=== PATIENT | male | born 1955 | race African-American/Black ===

== ENCOUNTER 2021-03-28 14:52 | Emergency (ER) | payer MEDICARE, OTHER ==
[~2021-03-28] VITALS: Ht 182.9 cm; Wt 94.0 kg
[2021-03-28 15:37] LABS: BASOPHILS % 0.5 % (0.0-2.0); EOSINOPHILS % 0.5 % (0.0-5.0); HEMATOCRIT. 41.3 % (42.0-52.0); HEMOGLOBIN. 12.5 g/dL (14.0-18.0); LYMPHOCYTES % 41.3 % (20.0-50.0); MEAN CORPUSCULAR HEMOGLOBIN 25.1 pg (28.0-32.0); MEAN CORPUSCULAR VOLUME 82.8 fL (80.0-94.0); MEAN PLATELET VOLUME 8.8 fl (7.4-10.4); MONOCYTES % 4.1 % (2.0-8.0); NEUTROPHILS % 53.6 % (40.0-76.0); PLATELET 294 x1000/uL (130-400); RED BLOOD CELL COUNT 4.98 mill/uL (4.7-6.1); RED CELL DISTRIBUTION WIDTH 15.6 % (11.6-14.6)
[2021-03-28 15:43] LABS: CHLORIDE 112 mEq/L (98-107)
[2021-03-28 17:52] LABS: CLARITY URINE TURBID (CLEAR); COLOR URINE DARK YELLOW (YELLOW); KETONES URINE TRACE (NEGATIVE); LEUKOCYTE ESTERASE URINE NEGATIVE (NEGATIVE); NITRITE URINE NEGATIVE (NEGATIVE); OCCULT BLOOD URINE NEGATIVE (NEGATIVE); PROTEIN URINE TRACE (NEGATIVE)
[2021-03-29 02:00] VITALS: BP 145/89
[2021-03-29] MEDS ORDERED: MORPHINE SULFATE 2 MG/ML CPJ (NOT FOR IM USE) IV PRN (02:45)
== END 2021-03-29 02:50 | disposition left against medical advice (07) ==
LOC: ER 14:52 → CANBEDREQ 03-29 07:30
DX: R07.2 Precordial pain (principal); R00.1 Bradycardia, unspecified; I11.9 Hypertensive heart disease without heart failure; I25.10 Atherosclerotic heart disease of native coronary artery without angina pectoris; K44.9 Diaphragmatic hernia without obstruction or gangrene; N40.0 Benign prostatic hyperplasia without lower urinary tract symptoms; Z95.5 Presence of coronary angioplasty implant and graft; Z98.890 Other specified postprocedural states
CPT/HCPCS: 36415; 71045; 80053; 81003; 83880; 85025; 93005; 99285

== ENCOUNTER 2021-07-17 09:22 | Emergency (ER) | payer MEDICARE, OTHER ==
[~2021-07-17] VITALS: Ht 182.9 cm; Wt 130.0 kg
[2021-07-17] MEDS ORDERED: AMOX-424 MT (09:44)
[2021-07-17] MEDS ORDERED: IBUP-2029 MT (09:44)
[2021-07-17] MEDS ORDERED: AMOXICILLIN/POTASSIUM CLAVULANATE 875/125MG TAB PO ONE (09:45)
[2021-07-17] MEDS ORDERED: IBUPROFEN 800MG TABLET PO ONE (09:45)
[2021-07-17 10:07] VITALS: BP 126/67
== END 2021-07-17 10:08 | disposition home or self-care (01) ==
LOC: ER 09:22
DX: K04.7 Periapical abscess without sinus (principal); I10 Essential (primary) hypertension; Z98.890 Other specified postprocedural states
CPT/HCPCS: 99283

== ENCOUNTER 2021-10-23 09:55 | Emergency (ER) | payer MEDICARE ==
[~2021-10-23] VITALS: Ht 182.9 cm; Wt 99.8 kg
[~2021-10-23 09:55] MED LIST: AMOX-424 MT; IBUP-2029 MT
[2021-10-23 11:46] LABS: CLARITY URINE CLOUDY (CLEAR); COLOR URINE YELLOW (YELLOW); KETONES URINE TRACE (NEGATIVE); LEUKOCYTE ESTERASE URINE NEGATIVE (NEGATIVE); NITRITE URINE NEGATIVE (NEGATIVE); OCCULT BLOOD URINE NEGATIVE (NEGATIVE); PROTEIN URINE NEGATIVE (NEGATIVE); SPECIFIC GRAVITY URINE 1.028 (1.005-1.030)
[2021-10-23 12:36] LABS: BASOPHILS % 0.7 % (0.0-2.0); EOSINOPHILS % 1.4 % (0.0-5.0); HEMATOCRIT. 39.3 % (42.0-52.0); LYMPHOCYTES % 55.2 % (20.0-50.0); MEAN CORPUSCULAR HEMOGLOBIN 26.3 pg (28.0-32.0); MEAN CORPUSCULAR VOLUME 79.4 fL (80.0-94.0); MEAN PLATELET VOLUME 8.9 fl (7.4-10.4); MONOCYTES % 8.7 % (2.0-8.0); PLATELET 243 x1000/uL (130-400); RED BLOOD CELL COUNT 4.95 mill/uL (4.7-6.1); RED CELL DISTRIBUTION WIDTH 15.2 % (11.6-14.6)
[2021-10-23 12:47] LABS: CHLORIDE 108 mEq/L (98-107)
[2021-10-23 13:38] VITALS: BP 147/86
== END 2021-10-23 13:39 | disposition home or self-care (01) ==
LOC: ER 09:55
DX: R42 Dizziness and giddiness (principal); E78.00 Pure hypercholesterolemia, unspecified; I10 Essential (primary) hypertension; Z86.73 Personal history of transient ischemic attack (TIA), and cerebral infarction without residual deficits
CPT/HCPCS: 36415; 80053; 81003; 82962; 85025; 93005; 99285

== ENCOUNTER 2022-06-12 19:16 | Emergency (ER) | payer MEDICARE, MEDICAID ==
[~2022-06-12] VITALS: Ht 182.9 cm; Wt 107.0 kg
[2022-06-13] MEDS ORDERED: FAMOTIDINE 20MG/2ML VIAL IV STA (02:13)
[2022-06-13 02:43] LABS: BASOPHILS % 0.5 % (0.0-2.0); EOSINOPHILS % 1.5 % (0.0-5.0); HEMATOCRIT. 36.6 % (42.0-52.0); HEMOGLOBIN. 11.8 g/dL (14.0-18.0); LYMPHOCYTES % 60.9 % (20.0-50.0); MEAN CORPUSCULAR HEMOGLOBIN 26.1 pg (28.0-32.0); MEAN CORPUSCULAR VOLUME 81.2 fL (80.0-94.0); MEAN PLATELET VOLUME 8.7 fl (7.4-10.4); MONOCYTES % 7.6 % (2.0-8.0); NEUTROPHILS % 29.5 % (40.0-76.0); PLATELET 227 x1000/uL (130-400); RED BLOOD CELL COUNT 4.51 mill/uL (4.7-6.1); RED CELL DISTRIBUTION WIDTH 15.5 % (11.6-14.6)
[2022-06-13 02:49] LABS: CHLORIDE 112 mEq/L (98-107)
[2022-06-13 02:55] LABS: PROTHROMBIN TIME 10.9 sec (9.6-11.0)
[2022-06-13 05:45] VITALS: BP 129/68
== END 2022-06-13 07:30 | disposition home or self-care (01) ==
LOC: ER 19:16
DX: K57.30 Diverticulosis of large intestine without perforation or abscess without bleeding (principal); N20.0 Calculus of kidney; N40.1 Benign prostatic hyperplasia with lower urinary tract symptoms; R35.0 Frequency of micturition
CPT/HCPCS: 36415; 74176; 80053; 82270; 85025; 99284

== ENCOUNTER 2024-05-23 13:20 | Emergency (ER) | payer OTHER, MEDICAID ==
[~2024-05-23] VITALS: Ht 182.9 cm; Wt 109.0 kg
[2024-05-23 13:33] VITALS: O2SAT 100
[2024-05-23 14:57] LABS: CLARITY URINE CLEAR (CLEAR); COLOR URINE YELLOW (YELLOW); GLUCOSE URINE NEGATIVE (NEGATIVE); KETONES URINE NEGATIVE (NEGATIVE); LEUKOCYTE ESTERASE URINE TRACE (NEGATIVE); NITRITE URINE NEGATIVE (NEGATIVE); OCCULT BLOOD URINE NEGATIVE (NEGATIVE); PH URINE 5.5 (4.5-8.0); PROTEIN URINE NEGATIVE (NEGATIVE); SPECIFIC GRAVITY URINE 1.019 (1.005-1.030); UROBILINOGEN URINE 0.2 E.U./dL (0.2-1.0)
[2024-05-23 15:09] LABS: BACTERIA URINE FEW; RBC URINE NONE SEEN /hpf (0-2); SQUAMOUS EPITHELIAL CELL URINE 2+ /lpf (RARE/1+); YEAST URINE NONE SEEN
[2024-05-23 15:48] LABS: BASOPHILS % 0.7 % (0.0-2.0); EOSINOPHILS % 1.1 % (0.0-5.0); HEMATOCRIT. 42.2 % (42.0-52.0); HEMOGLOBIN. 13.4 g/dL (14.0-18.0); LYMPHOCYTES % 57.6 % (20.0-50.0); MEAN CORPUSCULAR HEMOGLOBIN 26.3 pg (28.0-32.0); MEAN CORPUSCULAR HGB CONC 31.7 g/dL (31.0-37.0); MEAN CORPUSCULAR VOLUME 82.9 fL (80.0-94.0); MEAN PLATELET VOLUME 9.9 fl (7.4-10.4); NEUTROPHILS % 32.6 % (40.0-76.0); PLATELET 282 x1000/uL (130-400); RED CELL DISTRIBUTION WIDTH 15.7 % (11.6-14.6); WHITE BLOOD COUNT 8.1 x1000/uL (4.5-11.0)
[2024-05-23 15:58] LABS: CARBON DIOXIDE 29 mEq/L (21-32); CHLORIDE 109 mEq/L (98-107); SODIUM 143 mEq/L (136-145)
[2024-05-23 15:59] LABS: CALCIUM 9.9 mg/dL (8.7-10.4)
[2024-05-23 16:03] LABS: CREATININE 1.1 mg/dL (0.6-1.3)
[2024-05-23 16:04] LABS: GLUCOSE 82 mg/dL (70-105); UREA NITROGEN BLOOD 12 mg/dL (9-23)
[2024-05-23 16:09] LABS: TROPONIN I HIGH SENSITIVITY < 4 ng/L (3.0-53)
[2024-05-23 19:25] VITALS: BP 140/71; PULSE 62; RESP 18; TEMP 36.8; O2SAT 100
== END 2024-05-23 19:30 | disposition home or self-care (01) ==
LOC: ER 13:20
DX: R53.1 Weakness (principal); E78.00 Pure hypercholesterolemia, unspecified; I10 Essential (primary) hypertension; N40.0 Benign prostatic hyperplasia without lower urinary tract symptoms; Z86.73 Personal history of transient ischemic attack (TIA), and cerebral infarction without residual deficits; Z98.890 Other specified postprocedural states
CPT/HCPCS: 36415; 71045; 80048; 81003; 84484; 85025; 93005; 99285

== ENCOUNTER 2024-10-10 21:16 | Emergency (ER) | payer MEDICARE, MEDICAID ==
[~2024-10-10] VITALS: Ht 170.2 cm; Wt 109.0 kg
[2024-10-10 21:22] VITALS: TEMP 36.7; O2SAT 98
[2024-10-10] MEDS ORDERED: NA PHOS,M-B/NA PHOS,DI-BA ENEMA 118ML PR ONE (23:00)
[2024-10-11 00:15] VITALS: BP 131/83; PULSE 64; RESP 15; O2SAT 99
[2024-10-11] MEDS ORDERED: NA PHOS,M-B/NA PHOS,DI-BA ENEMA 118ML PR PRN (00:30)
[2024-10-11] MEDS: NA PHOS,M-B/NA PHOS,DI-BA ENEMA 118ML PR NR (00:34)
[2024-10-11] MEDS ORDERED: DOCU-138 MT (01:44)
== END 2024-10-11 02:10 | disposition home or self-care (01) ==
LOC: ER 21:16
DX: K59.00 Constipation, unspecified (principal); E78.00 Pure hypercholesterolemia, unspecified; I10 Essential (primary) hypertension; N40.0 Benign prostatic hyperplasia without lower urinary tract symptoms; Z86.73 Personal history of transient ischemic attack (TIA), and cerebral infarction without residual deficits; Z98.890 Other specified postprocedural states
CPT/HCPCS: 99282; 99284

== ENCOUNTER 2024-10-24 22:56 | Emergency (ER) | payer MEDICARE, MEDICAID ==
[~2024-10-24] VITALS: Ht 182.9 cm; Wt 109.0 kg
[~2024-10-24 22:56] MED LIST changes: +DOCU-138 MT
[2024-10-25 00:10] VITALS: O2SAT 98
[2024-10-25 01:17] LABS: BASOPHILS % 1.1 % (0.0-2.0); EOSINOPHILS % 2.4 % (0.0-5.0); HEMATOCRIT. 37.8 % (42.0-52.0); HEMOGLOBIN. 12.2 g/dL (14.0-18.0); LYMPHOCYTES % 53.6 % (20.0-50.0); MEAN PLATELET VOLUME 8.6 fl (7.4-10.4); MONOCYTES % 8.3 % (2.0-8.0); NEUTROPHILS % 34.6 % (40.0-76.0); PLATELET 239 x1000/uL (130-400); RED BLOOD CELL COUNT 4.68 mill/uL (4.7-6.1); RED CELL DISTRIBUTION WIDTH 15.2 % (11.6-14.6)
[2024-10-25 01:30] LABS: CREATININE 1.1 mg/dL (0.6-1.3); UREA NITROGEN BLOOD 16 mg/dL (9-23)
[2024-10-25 03:22] VITALS: BP 157/93; PULSE 70; RESP 19; TEMP 36.6; O2SAT 100
== END 2024-10-25 03:27 | disposition home or self-care (01) ==
LOC: ER 22:56
DX: R60.0 Localized edema (principal); I10 Essential (primary) hypertension; Z59.00 Homelessness unspecified
CPT/HCPCS: 36415; 80048; 85025; 93970; 99284

== ENCOUNTER 2024-10-29 23:06 | Emergency (ER) | payer MEDICARE, MEDICAID ==
[~2024-10-29] VITALS: Ht 182.9 cm; Wt 109.0 kg
[2024-10-29 23:24] VITALS: O2SAT 97
[2024-10-30] MEDS ORDERED: BO1 TP (01:59)
[2024-10-30 02:23] VITALS: BP 151/89; PULSE 58; RESP 18; TEMP 36.7; O2SAT 95
== END 2024-10-30 02:25 | disposition home or self-care (01) ==
LOC: ER 23:06
DX: S80.821A Blister (nonthermal), right lower leg, initial encounter (principal); S10.82XA Blister (nonthermal) of other specified part of neck, initial encounter; I10 Essential (primary) hypertension; X58.XXXA Exposure to other specified factors, initial encounter; Y93.89 Activity, other specified; Y92.89 Other specified places as the place of occurrence of the external cause; Y99.8 Other external cause status
CPT/HCPCS: 99282

== ENCOUNTER 2024-11-03 10:23 | Emergency (ER) | payer OTHER, MEDICAID ==
[~2024-11-03] VITALS: Ht 182.9 cm; Wt 112.9 kg
[~2024-11-03 10:23] MED LIST changes: +BO1 TP
[2024-11-03 10:29] VITALS: TEMP 36.6; O2SAT 100
[2024-11-03 11:11] LABS: BASOPHILS % 1.3 % (0.0-2.0); EOSINOPHILS % 2.0 % (0.0-5.0); HEMATOCRIT. 40.5 % (42.0-52.0); HEMOGLOBIN. 12.6 g/dL (14.0-18.0); LYMPHOCYTES % 50.2 % (20.0-50.0); MEAN PLATELET VOLUME 9.2 fl (7.4-10.4); MONOCYTES % 8.9 % (2.0-8.0); NEUTROPHILS % 37.6 % (40.0-76.0); PLATELET 321 x1000/uL (130-400); RED BLOOD CELL COUNT 4.93 mill/uL (4.7-6.1); RED CELL DISTRIBUTION WIDTH 15.4 % (11.6-14.6)
[2024-11-03 11:25] LABS: CREATININE 1.1 mg/dL (0.6-1.3); UREA NITROGEN BLOOD 20 mg/dL (9-23)
[2024-11-03] MEDS ORDERED: MECLIZINE 25MG TABLET PO ONE (12:15)
[2024-11-03 12:44] LABS: TROPONIN I HIGH SENSITIVITY < 4 ng/L (3.0-53)
[2024-11-03] MEDS: MECLIZINE 25MG TABLET PO SCH (13:58)
[2024-11-03 14:02] LABS: CLARITY URINE CLOUDY (CLEAR); COLOR URINE YELLOW (YELLOW); GLUCOSE URINE NEGATIVE (NEGATIVE); KETONES URINE NEGATIVE (NEGATIVE); LEUKOCYTE ESTERASE URINE TRACE (NEGATIVE); NITRITE URINE NEGATIVE (NEGATIVE); OCCULT BLOOD URINE NEGATIVE (NEGATIVE); PH URINE 5.0 (4.5-8.0); PROTEIN URINE NEGATIVE (NEGATIVE); SPECIFIC GRAVITY URINE 1.024 (1.005-1.030); UROBILINOGEN URINE 1.0 E.U./dL (0.2-1.0)
[2024-11-03] MEDS: SODIUM CHLORIDE 0.9% 250 ML IV ONE (14:10)
[2024-11-03 14:13] LABS: SQUAMOUS EPITHELIAL CELL URINE 1+ /lpf (RARE/1+); URIC ACID CRYSTALS URINE 2+ /lpf
[2024-11-03 14:15] LABS: BACTERIA URINE TRACE; RBC URINE NONE SEEN /hpf (0-2)
[2024-11-03 14:41] VITALS: BP 155/95; PULSE 62; RESP 18; O2SAT 100
[2024-11-03 15:15] LABS: TROPONIN I HIGH SENSITIVITY 4 ng/L (3.0-53)
== END 2024-11-03 15:26 | disposition short-term general hospital (02) ==
LOC: ER 11:08 → EDBEDREQ 12:12 → ER 15:26
DX: R42 Dizziness and giddiness (principal); I10 Essential (primary) hypertension; Z90.81 Acquired absence of spleen; Z98.890 Other specified postprocedural states; Z79.899 Other long term (current) drug therapy
CPT/HCPCS: 80048; 81003; 85025; 84484; 36415; 71045; 70450; 93005; 96360; 99285; J8597; J7050; Z7610 ×2; A4606

== ENCOUNTER 2025-02-18 22:57 | Emergency (ER) | payer MEDICARE, MEDICAID ==
[~2025-02-18] VITALS: Ht 182.9 cm; Wt 109.0 kg
[~2025-02-18 22:57] MED LIST changes: +IBUP-1455 MT; -IBUP-2029 MT
[2025-02-18 23:16] VITALS: O2SAT 99
[2025-02-19 01:38] LABS: BASOPHILS % 0.7 % (0.0-2.0); EOSINOPHILS % 2.1 % (0.0-5.0); HEMATOCRIT. 37.4 % (42.0-52.0); HEMOGLOBIN. 12.0 g/dL (14.0-18.0); LYMPHOCYTES % 53.8 % (20.0-50.0); MEAN PLATELET VOLUME 9.2 fl (7.4-10.4); MONOCYTES % 8.6 % (2.0-8.0); NEUTROPHILS % 34.8 % (40.0-76.0); PLATELET 250 x1000/uL (130-400); RED BLOOD CELL COUNT 4.66 mill/uL (4.7-6.1); RED CELL DISTRIBUTION WIDTH 15.4 % (11.6-14.6)
[2025-02-19 01:49] LABS: CREATININE 1.0 mg/dL (0.6-1.3); UREA NITROGEN BLOOD 13 mg/dL (9-23)
[2025-02-19 01:50] LABS: TROPONIN I HIGH SENSITIVITY 6 ng/L (3.0-53)
[2025-02-19 01:51] LABS: ASPARTATE AMINOTRANSFERASE 15 IU/L (<34); BILIRUBIN DIRECT 0.1 mg/dL (<=3.0); BILIRUBIN TOTAL 0.5 mg/dL (0.1-1.0); PROTEIN TOTAL 6.7 g/dL (6.0-8.3)
[2025-02-19] MEDS ORDERED: IBUP-2028 PO (07:36)
[2025-02-19] MEDS ORDERED: IBUPROFEN 400MG TABLET PO ONE (07:45)
[2025-02-19 08:25] VITALS: BP 136/86; PULSE 65; RESP 18; TEMP 36.7; O2SAT 99
== END 2025-02-19 08:26 | disposition home or self-care (01) ==
LOC: ER 23:22
DX: M79.671 Pain in right foot (principal); M79.672 Pain in left foot; R06.02 Shortness of breath; Z95.1 Presence of aortocoronary bypass graft
CPT/HCPCS: 36415; 71045; 73630; 80048; 80076; 83880; 84484; 85025; 93005; 99285

== ENCOUNTER 2025-02-24 03:30 | Emergency (ER) | payer MEDICARE, MEDICAID ==
[~2025-02-24] VITALS: Ht 182.9 cm; Wt 108.0 kg
[~2025-02-24 03:30] MED LIST changes: -IBUP-1455 MT; +IBUP-2028 PO
[2025-02-24 03:42] VITALS: O2SAT 100
[2025-02-24 04:32] LABS: CLARITY URINE CLEAR (CLEAR); COLOR URINE YELLOW (YELLOW); GLUCOSE URINE NEGATIVE (NEGATIVE); KETONES URINE NEGATIVE (NEGATIVE); LEUKOCYTE ESTERASE URINE NEGATIVE (NEGATIVE); NITRITE URINE NEGATIVE (NEGATIVE); OCCULT BLOOD URINE NEGATIVE (NEGATIVE); PH URINE 6.0 (4.5-8.0); PROTEIN URINE NEGATIVE (NEGATIVE); SPECIFIC GRAVITY URINE 1.025 (1.005-1.030); UROBILINOGEN URINE 0.2 E.U./dL (0.2-1.0)
[2025-02-24] MEDS ORDERED: TAMS-54 MT (05:12)
[2025-02-24 05:26] VITALS: BP 165/98; PULSE 60; RESP 18; TEMP 36.6; O2SAT 100
== END 2025-02-24 05:28 | disposition home or self-care (01) ==
LOC: ER 03:30
DX: R35.0 Frequency of micturition (principal); I10 Essential (primary) hypertension; N40.1 Benign prostatic hyperplasia with lower urinary tract symptoms; Z79.1 Long term (current) use of non-steroidal anti-inflammatories (NSAID); Z79.899 Other long term (current) drug therapy
CPT/HCPCS: 81003; 82962; 99283